=== PATIENT | female | born 1955 | race Caucasian/White ===

== ENCOUNTER 2017-12-21 16:12 | Emergency (ER) | payer MEDICARE, BC, OTHER ==
[2017-12-21] MEDS ORDERED: IBUPROFEN600 MG PO (20:23)
[2017-12-21] MEDS ORDERED: ORPHENADRINE100 MG PO (20:23)
[2017-12-21 20:51] VITALS: BP 116/82
== END 2017-12-21 20:52 | disposition home or self-care (01) ==
LOC: ED 16:12
DX: M50.30 Other cervical disc degeneration, unspecified cervical region (principal); M79.601 Pain in right arm